=== PATIENT | female | born 1970 | race Caucasian/White ===

== ENCOUNTER 2020-08-14 18:01 | Observation (INO) | payer OTHER, SELFPAY ==
[2020-08-14] MEDS ORDERED: Ondansetron PF 4 MG/2 ML Vial IVP PRN (22:00)
[2020-08-14] MEDS ORDERED: Ondansetron ODT 4 MG TAB SL PRN (22:00)
[2020-08-14] MEDS ORDERED: Acetaminophen 325 MG TAB PO PRN (22:00)
[2020-08-14 22:42] VITALS: BMI 34.0
[2020-08-14] MEDS ORDERED: HYDROcodone/Acetaminophen 5/325 mg Tablet PO PRN (23:19)
[2020-08-15 02:57] LABS: SARS-CoV-2 NAA Rapid Test Not Detected (NotDetected)
[2020-08-15 05:13] LABS: #Basophils 0.1 thou/uL (0.0-0.2); #Lymphocytes 1.6 thou/uL (1.20-3.40); #Monocytes 0.9 thou/uL (0.11-0.59); #Neutrophils 6.8 thou/uL (1.40-6.50); %Basophils 0.6 % (0.0-1.0); %Eosinophils 0.3 % (0.0-10.0); %Lymphocytes 16.6 % (21.0-51.0); %Monocytes 9.7 % (0.0-10.0); %Neutrophils 72.9 % (42.0-75.0); Hemoglobin 15.4 g/dL (12.0-16.0); Mean Corpuscular HGB CONC 33.4 g/dL (32.0-36.0); Mean Corpuscular Hemoglobin 29.1 pg (27.0-31.0); Mean Corpuscular Volume 87.2 fL (78.0-98.0); Mean Platelet Volume 8.7 fL (7.4-10.4); Platelet Count 244 thou/uL (130-400); RBC Distribution Width 11.6 % (11.5-14.5); Red Blood Cell (RBC) Count 5.28 mill/uL (4.20-5.40); White Blood Cell (WBC) Count 9.3 thou/uL (4.8-10.8)
[2020-08-15 05:37] LABS: Anion Gap 14 mmol/L (10-20); BUN (Urea Nitrogen) 13 mg/dL (7.0-18.7); Calc. Creatinine Clearance 134 mL/min (70-130); Calcium 9.9 mg/dL (7.8-10.44); Carbon Dioxide 22 mmol/L (22-29); Chloride 104 mmol/L (98-107); Cholesterol 251 mg/dl (< 200 Desired); Glucose 102 mg/dL (70-105); HDL Cholesterol 62 mg/dL (>60 Neg Risk); LDL Cholesterol, Calculated 159 mg/dL; Sodium 136 mmol/L (136-145); Triglycerides 148 mg/dL (Less than 150)
[2020-08-15] MEDS ORDERED: Cyclobenzaprine 10 MG TAB PO PRN (07:09)
[2020-08-15] MEDS ORDERED: traMADol HCl 50 MG TAB PO PRN (07:09)
[2020-08-15] MEDS ORDERED: Enoxaparin Sodium 40 MG/0.4 ML SYRINGE SC SCH (09:00)
[2020-08-15] MEDS ORDERED: Aspirin 81 mg Enteric Coated Tablet PO SCH (09:00)
[2020-08-15] MEDS ORDERED: Ondansetron PF 4 MG/2 ML Vial IVP PRN (13:54)
[2020-08-15] MEDS ORDERED: Hydrochlorothiazide 25 MG TAB PO SCH (14:00)
[2020-08-15] MEDS ORDERED: Metoprolol Tartrate 25 MG TAB PO SCH ×2 (14:00→21:00)
[2020-08-15 15:56] VITALS: TEMP 98.8
[2020-08-15 22:39] VITALS: BP 141/70
[2020-08-16] MEDS ORDERED: Hydrochlorothiazide 25 MG TAB PO SCH (09:00)
== END 2020-08-15 17:40 | disposition home or self-care (01) ==
LOC: ERS 18:01 → 2SE 18:56
PROVIDERS: ADMIT Student in an Organized Health Care Education/Training Program; ATTEND Internal Medicine
DX: R42 Dizziness and giddiness (principal); H93.12 Tinnitus, left ear; R47.81 Slurred speech; G90.522 Complex regional pain syndrome I of left lower limb; M54.9 Dorsalgia, unspecified; K21.9 Gastro-esophageal reflux disease without esophagitis; I10 Essential (primary) hypertension; M16.12 Unilateral primary osteoarthritis, left hip; M19.90 Unspecified osteoarthritis, unspecified site; R51.9 Headache, unspecified; I34.0 Nonrheumatic mitral (valve) insufficiency; E66.9 Obesity, unspecified; Z68.34 Body mass index [BMI] 34.0-34.9, adult; Z79.899 Other long term (current) drug therapy; Z88.8 Allergy status to other drugs, medicaments and biological substances; Z20.822 Contact with and (suspected) exposure to COVID-19
CPT/HCPCS: 36415; 70551; 80048; 80061; 85025; 87635; 93306; 96374; 96375; 99284; G0378; J1650; J2405; U0002; U0003; U0005